=== PATIENT | female | born 1980 | race Caucasian/White ===

== ENCOUNTER 2017-01-20 18:16 | Emergency (ER) | payer SELFPAY ==
[2017-01-20 19:44] VITALS: O2SAT 98
[2017-01-20 21:06] LABS: RBC URINE 16 /hpf (0-3); URINE BACTERIA FEW (<OCC); URINE BILIRUBIN NEGATIVE (NEGATIVE); URINE BLOOD 2+ (NEGATIVE); URINE COLOR Yellow (YELLOW); URINE GLUCOSE (UA) NORMAL (Normal); URINE KETONE NEGATIVE (NEGATIVE); URINE LEUKOCYTE ESTERASE 3+ Leu/uL (Negative); URINE PROTEIN NEGATIVE (NEGATIVE); URINE UROBILINOGEN NORMAL mg/dL (0.2-1.0); WBC URINE 55 /hpf (0-5)
--- NOTE | 2017-01-20 21:12 | C.PDOC ---
History Of Present Illness 36 y/o female complaining of intermittent dysuria and suprapubic pain since yesterday. Denies fever, chills, hematuria, back pain, or other complaint. Reports that she missed her last period. She was on a hormonal treatment until recently when she discontinued it after concerns for side effects. Time Seen by Provider: 01/20/17 19:53 Chief Complaint (Nursing): Female Genitourinary History Per: Patient History/Exam Limitations: no limitations Onset/Duration Of Symptoms: Days Current Symptoms Are (Timing): Still Present Severity: Moderate Quality Of Discomfort: "Pain" Associated Symptoms: denies: Fever, Nausea, Vomiting, Diarrhea, Back Pain Alleviating Factors: None Recent travel outside of the [place]: No Additional History Per: Patient Abnormal Vaginal Bleeding: No Past Medical History Reviewed: Nursing Documentation, Vital Signs Vital Signs: Last Vital Signs Temp 98.2 F 01/20/17 21:17 Pulse 72 01/20/17 21:17 Resp 18 01/20/17 21:17 BP 118/69 01/20/17 21:17 Pulse Ox 98 01/20/17 21:28 Family History: States: Unknown Family Hx - Social History Hx Alcohol Use: No Hx Substance Use: No - Immunization History Hx Tetanus Toxoid Vaccination: No Hx Influenza Vaccination: No Hx Pneumococcal Vaccination: No Review Of Systems Except As Marked, All Systems Reviewed And Found Negative. Constitutional: Negative for: Fever Gastrointestinal: Positive for: Abdominal Pain Genitourinary: Positive for: Dysuria Physical Exam - Physical Exam Appears: Non-toxic, No Acute Distress Skin: Warm, Dry Head: Atraumatic, Normacephalic Nose: No Epistaxis, No Deformity Oral Mucosa: Moist Neck: Supple Gastrointestinal/Abdominal: Bowel Sounds, Soft, No Tenderness, No Guarding, No Ascites Back: No CVA Tenderness Extremity: Normal ROM ED Course And Treatment O2 Sat by Pulse Oximetry: 98 (RA) Pulse Ox Interpretation: Normal Medical Decision Making Medical Decision Making: Dysuria and suprapubic pain x1 day. Declined pelvic exam. Urinalysis positive for UTI. On reassessment, patient is resting comfortably, and is in no acute distress. Patient was instructed to follow up with NUTRITIONALIST in 1-2 days for further evaluation. Disposition Doctor Will See Patient In The: Office Counseled Patient/Family Regarding: Diagnosis, Need For Followup, Rx Given - Disposition Referrals: [facility] [Outside] [facility] [employer] [Outside] Disposition: HOME/ ROUTINE Disposition Time: 21:10 Condition: STABLE Additional Instructions: Please follow up in clinic Take medication prescribed Return to ER if worse Prescriptions: Nitrofurantoin Macrocrystals [Macrobid] 1 cap PO BID #14 cap Instructions: Urinary Tract Infection in Women (ED) - Clinical Impression Clinical Impression: UTI (urinary tract infection) - Scribe Statement The provider has reviewed the documentation as recorded by the Scribe Kate Yuen
[2017-01-20 21:18] VITALS: BP 118/69; PULSE 72; RESP 18; TEMP 98.2
== END 2017-01-20 21:18 | disposition home or self-care (01) ==
LOC: C.ER 18:16
DX: N39.0 Urinary tract infection, site not specified (principal)